=== PATIENT | male | born 1955 | race Caucasian/White ===

== ENCOUNTER → 2018-01-29 | Outpatient (CLI) | payer BC ==
--- NOTE | 2018-01-29 09:44 | XR ---
EXAMINATION TYPE: XR KUB DATE OF EXAM: 01/29/2018 COMPARISON: NONE HISTORY: Pain TECHNIQUE: One view abdominal series FINDINGS: Arthropathy noted. Paraspinal ossification or calcification on the left stable. Surgical clips in the upper abdomen noted. There are nonspecific calcifications in the pelvis. Penile prostheses incidentally noted. Arthropathy of the hips noted. Ostomy site seen within the right lower quadrant. IMPRESSION: 1. Calcifications in the pelvis are nonspecific with no prior exams available to compare. No suspicio us calcifications overlying the renal outlines.
== END | disposition home or self-care (01) ==
LOC: RADXRMAIN 09:21
PROVIDERS: ATTEND Urology
DX: N20.1 Calculus of ureter (principal)
CPT/HCPCS: 74018

== ENCOUNTER → 2018-02-09 | Outpatient (CLI) | payer BC ==
--- NOTE | 2018-02-10 09:14 | CT ---
EXAMINATION TYPE: CT abdomen pelvis wo con DATE OF EXAM: 02/09/2018 HISTORY: Left ureteral stone. Abnormal x-ray. CT DLP: 1087 mGycm. Automated Exposure Control for Dose Reduction was Utilized. TECHNIQUE: CT scan of the abdomen and pelvis is performed without oral or IV contrast. COMPARISON: Abdominal x-ray January 29, 2018 FINDINGS: Within the limitations of a non-contrast study, the following observations are made. LUNG BASES: Coronary artery calcification RCA and left circumflex present, noted marker for coronary artery disease. LIVER/GB: No significant abnormality is appreciated. PANCREAS: No significant abnormality is seen. SPLEEN: No significant abnormality is seen. ADRENALS: There is 1.6 x 1.5 cm low dense left adrenal mass, Hounsfield units average 0. There is low dense 2.0 x 1.8 cm right adrenal mass, Hounsfield units average 3. 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 KIDNEYS: No left-sided renal calculus or hydronephrosis. There is moderate to severe right-sided hydr onephrosis without prominent hydroureter, there is fairly rapid transition proximal ureter level, no obstructing calculus is seen. Uroepithelial tumor needs to BE excluded. BOWEL: There are diverticula along the mesenteric portion of the second and third portion of duodenum seen best coronal image 49. There is right lower quadrant ileostomy. Surgical changes from total col ectomy are present. Left-sided surgical clips are seen. There is partially rim calcified intraluminal mass in bladder measuring 5.0 x 3.9 cm transversely axi al image 125 along left aspect of bladder wall confirmed coronal image 61. Neoplasm is suspected. The re is focal mild anterior bladder wall thickening up to 6 mm. Anterior to this there is a penile pump prosthesis reservoir. Some lobulation to the bladder is present. There is second suspicious asymmetr ic superior right bladder wall mass measuring 1.7 cm axial image 110. GENITAL ORGANS: Prostate is poorly visualized. There is suspected TURP type defect. LYMPH NODES: No greater than 1cm abdominal or pelvic lymph nodes are appreciated. There are prominent but subcentimeter lymph nodes throughout the mesentery, there are areas of irregular nodularity and slight mesenteric thickening seen best on coronal images. OSSEOUS STRUCTURES: Moderate joint space loss and acetabular geode formation is present in both hips. There is moderate to severe joint space loss with spurring and vacuum disc phenomenon lumbosacral ju nction. There is moderate multilevel spurring in the thoracolumbar spine. Prominent left lateral spur ring L3 level is likely accounting for x-ray abnormality. OTHER: No significant additional abnormality is seen. IMPRESSION: No renal or ureter stones is seen bilaterally. There are however two suspicious bladder m asses worrisome for neoplasm and moderate to severe right-sided hydronephrosis without hydroureter, t hird proximal ureter uroepithelial tumor needs to be strongly considered. Direct visualization is war ranted. Mild mesenteric studding could reflect early metastatic spread. Other etiologies not excluded . A Yellow level critical message alert has been initiated for Noel Fox MD via the [facility] Critical Results System on 02/10/2018 9:11 AM. This message alert has been sent to Jeanna Esqueda via the preferences provided by the clinician for the receipt of Radiology Critical Findings. Josefa Ikanos ID [id number].
== END | disposition home or self-care (01) ==
LOC: RADCTMAIN 18:29
PROVIDERS: ATTEND Urology
DX: N13.30 Unspecified hydronephrosis (principal)
CPT/HCPCS: 74176

== ENCOUNTER 2021-11-06 06:22 | Day surgery (SDC) | payer MEDICARE ==
[2021-11-02 11:06] VITALS: BMI 32.1
[~2021-11-06 06:22] MED LIST: DEXAMETHASONE SOD PHOSPHATE 4 MG/ML 1 ML VIAL IV ONE; LACTATED RINGERS 1,000 ML IV SCH; ONDANSETRON 4 MG/2 ML VIAL IVP ONE; Pre Op ABX Message 1 EACH MISC MISCELLANE ONE
[2021-11-06 06:59] VITALS: TEMP 97
[2021-11-06] MEDS ORDERED: HYDROmorphone 0.5 MG/0.5 ML SYRINGE IVP PRN (07:00)
[2021-11-06 07:13] LABS: Glucose,Whole Blood 118 mg/dL (75-99)
[2021-11-06] MEDS ORDERED: LIDOCAINE 1% (10MG/ML) FOR IV START INTRADERMA ONE (07:14)
[2021-11-06] MEDS ORDERED: MIDAZOLAM 2 MG/2 ML VIAL ONE (07:19)
[2021-11-06] MEDS ORDERED: .fentaNYL (PF) 50 MCG/ML 2 ML AMP ONE (07:19)
[2021-11-06] MEDS ORDERED: KETAMINE 10 MG/ML 20 ML VIAL ONE (07:19)
[2021-11-06] MEDS ORDERED: PROPOFOL 10 MG/ML 20 ML VIAL IV ONE (07:19)
[2021-11-06 07:32] LABS: Potassium 3.9 mmol/L (3.5-5.1)
--- NOTE | 2021-11-06 07:32 | P.GSHP ---
History of Present Illness H&P Date: 11/06/21 Chief Complaint: Diabetic ulcer right foot The patient has had an ulcer on the plantar aspect of his right foot for over a month. There is no pain involved. He is a diabetic. It is under fair control. Past Medical History Past Medical History: Diabetes Mellitus, Hyperlipidemia, Hypertension, Prostate Disorder Additional Past Medical History / Comment(s): COLOSTOMY. rt foot wound History of Any Multi-Drug Resistant Organisms: None Reported Past Surgical History: Appendectomy, Bowel Resection Past Anesthesia/Blood Transfusion Reactions: No Reported Reaction Smoking Status: Former smoker - Past Family History Brother(s) Family Medical History: Cancer Additional Family Medical History / Comment(s): prostate cancer Mother Family Medical History: Diabetes Mellitus Medications and Allergies Home Medications Medication Instructions Recorded Confirmed Type Atorvastatin [Lipitor] 10 mg PO DAILY 11/06/15 11/06/21 History HYDROcodone/APAP 5-325MG [[place] 5] 1 tab PO HS PRN 11/06/15 11/06/21 History Losartan/Hydrochlorothiazide 1 tab PO DAILY 11/06/15 11/06/21 History [Hyzaar 100-25 Tablet] amLODIPine [Norvasc] 10 mg PO DAILY 11/06/15 11/06/21 History cloNIDine [Clonidine] 0.3 mg TRANSDERM WEEKLY 11/06/15 11/06/21 History metFORMIN HCL [Glucophage] 500 mg PO BID 11/06/15 11/06/21 History ALPRAZolam [Xanax] 0.25 mg PO HS 11/02/21 11/06/21 History Levothyroxine Sodium [Synthroid] 25 mcg PO DAILY 11/06/21 11/06/21 History Allergies Allergy/AdvReac Type Severity Reaction Status Date / Time No Known Allergies Allergy Verified 11/06/21 07:00 Surgical - Exam Osteopathic Statement: *. No significant issues noted on an osteopathic structural exam other than those noted in the History and Physical/Consult. Vital Signs Temp Pulse Resp BP Pulse Ox 97 F L 65 16 130/69 97 11/06/21 06:55 11/06/21 06:55 11/06/21 06:55 11/06/21 06:55 11/06/21 06:55 - General well developed, well nourished, no distress There is an ulcer on the plantar right foot over the distal head of the fifth metatarsal. The distal head of the fifth metatarsal is involved with loss of bone structure. Results - Labs Abnormal Lab Results - Last 24 Hours (Table) 11/06/21 Range/Units 07:07 POC Glucose (mg/dL) 118 H (75-99) mg/dL Assessment and Plan (1) Diabetic ulcer of right foot associated with diabetes mellitus due to underlying condition, with necrosis of bone Current Visit: Yes Status: Acute Code(s): E08.621 - DIABETES MELLITUS DUE TO UNDERLYING CONDITION W FOOT ULCER; L97.514 - NON-PRS CHRONIC ULCER OTH PRT RIGHT FOOT W NECROSIS OF BONE SNOMED Code(s): 882782099 Plan: I discussed options for therapy with the patient in detail. We will debridement the ulcer and any bony involvement. Following the procedure will be packed and a wound VAC will be placed tomorrow in wound care. The patient verbalizes an understanding of our plan and his agreement with it.
--- NOTE | 2021-11-06 07:59 | P.OP ---
Date of Procedure: 11/06/21 Preoperative Diagnosis: Diabetic infection right foot Postoperative Diagnosis: Same Procedure(s) Performed: Debridement right foot including tended and soft tissues Anesthesia: MAC Surgeon: Wes Magana Estimated Blood Loss (ml): 30 Pathology: other (Soft tissue culture) Condition: stable Disposition: PACU Indications for Procedure: The patient has a severe diabetic ulcer plantar right foot over the fifth metatarsal and on the plantar aspect of the right great toe Operative Findings: On debridement there appeared to be periosteum over the distal fifth MP joint. There was, however, a lot of scar tissue and callus around the area. The great toe only involved the soft tissues and only the fatty layer was exposed. The initial measurements on the great toe was 0.3 cm x 0.3 cm and 0.2 cm in depth. Final measurements were 1.1 x 1.1 cm and 0.3 cm in depth. The lateral aspect of the foot was initially about 0.8 x 0.8 cm and 0.7 cm in depth. Final measurements 1.3 x 1.4 cm and 0.9 cm in depth. With debridement we removed dermis, epidermis and subcutaneous tissue on the great toe. On the lateral foot we removed dermis, epidermis, subcutaneous tissue, and fascia. Description of Procedure: With the patient spine position, under benefit of IV sedation, we prepped and draped in standard fashion. We used a scalpel to scrape and excise the nonviable tissue and callus on the plantar great toe as described. We used a scalpel and forceps to excise callus and callused soft tissue and removed epidermis, dermis, soft tissue, and fascia down to the surface of the bone, which appeared to be covered with periosteum. Hemostasis was accomplished with direct pressure. Absorptive silver dressing was applied with gauze Kerlix and Matt wrap. The patient tolerated the procedure well and was taken to recovery area in stable condition.
[2021-11-06 08:54] VITALS: BP 115/72; PULSE 44; RESP 18
== END 2021-11-06 08:45 | disposition home or self-care (01) ==
LOC: OR 06:22
PROVIDERS: ATTEND Thoracic Surgery (Cardiothoracic Vascular Surgery)
DX: E11.621 Type 2 diabetes mellitus with foot ulcer (principal); L97.519 Non-pressure chronic ulcer of other part of right foot with unspecified severity; E78.5 Hyperlipidemia, unspecified; I10 Essential (primary) hypertension; Z93.3 Colostomy status; Z90.49 Acquired absence of other specified parts of digestive tract; Z87.891 Personal history of nicotine dependence; Z80.42 Family history of malignant neoplasm of prostate; Z83.3 Family history of diabetes mellitus; Z79.84 Long term (current) use of oral hypoglycemic drugs; Z79.890 Hormone replacement therapy; Z79.899 Other long term (current) drug therapy
CPT/HCPCS: 80051; 87070; 87205; 87075; 11042; J2250; J2405; J3010; J2704; 87077; 87186

== ENCOUNTER → 2021-11-13 | Outpatient (CLI) | payer MEDICARE ==
--- NOTE | 2021-11-14 10:14 | P.ARTDOP ---
Arterial Doppler LOWER EXTREMITY ARTERIAL DOPPLER: DATE OF SERVICE: 11/13/2021 Reason for study: Diabetes with ulcer right forefoot. Doppler waveforms: Multiphasic bilaterally throughout with good toe waveforms. Pulse volume recording: []. Pressure gradients: Minimal at toe level. Ankle-brachial indices: Greater than 1 bilaterally. Toe brachial indices: 0.55 on the right, 0.63 on the left Impression: Normal study. Slight decrease in TBI probably related to vasospastic phenomenon..
== END | disposition home or self-care (01) ==
LOC: RADUSWWP 08:50
PROVIDERS: ATTEND Thoracic Surgery (Cardiothoracic Vascular Surgery)
DX: E11.621 Type 2 diabetes mellitus with foot ulcer (principal); L97.514 Non-pressure chronic ulcer of other part of right foot with necrosis of bone
CPT/HCPCS: 93922

== ENCOUNTER 2023-08-11 15:36 | Emergency (ER) | payer MEDICARE, BC, OTHER ==
[2023-08-11 16:23] VITALS: TEMP 98
[2023-08-11] MEDS ORDERED: KETOROLAC 15 MG/ML 1 ML VIAL IM STA (17:30)
[2023-08-11 18:08] LABS: Appearance,Urine Clear (Clear); Bacteria,Urine Occasional /hpf; Basophils # (A) 0.1 k/uL (0-0.2); Basophils % (A) 0 %; Bilirubin,Urine Negative (Negative); Blood,Urine Negative (Negative); Color,Urine Yellow; Eosinophils # (A) 0.3 k/uL (0-0.7); Eosinophils % (A) 2 %; Glucose,Urine (UA) Negative (Negative); HCT 45.1 % (39.0-53.0); HGB 15.4 gm/dL (13.0-17.5); Hyaline Casts,Urine 1 /lpf (0-2); Ketones,Urine Negative (Negative); Leukocyte Esterase,Urine Moderate (Negative); Lymphocytes # (A) 2.7 k/uL (1.0-4.8); Lymphocytes % (A) 20 %; MCH 32.5 pg (25.0-35.0); MCHC 34.2 g/dL (31.0-37.0); MCV 94.9 fL (80.0-100.0); Mean Platelet Volume 8.8; Monocytes % (A) 7 %; Neutrophils # (A) 9.5 k/uL (1.3-7.7); Neutrophils % (A) 69 %; Nitrite,Urine Negative (Negative); PH, Urine 6.5 (5.0-8.0); Platelet Count 230 k/uL (150-450); Protein,Urine 1+ (Negative); RBC 4.75 m/uL (4.30-5.90); RBC,Urine 1 /hpf (0-5); RDW 12.2 % (11.5-15.5); Specific Gravity,Urine 1.018 (1.001-1.035); Urobilinogen,Urine <2.0 mg/dL (<2.0); WBC 13.7 k/uL (3.8-10.6); WBC,Urine 68 /hpf (0-5)
--- NOTE | 2023-08-11 18:11 | XR ---
EXAMINATION TYPE: XR ankle complete RT DATE OF EXAM: 08/11/2023 5:56 PM CLINICAL INDICATION:Male, 68 years old with history of s/p tractor falling on; [facility] COMPARISON: None TECHNIQUE: The right ankle is imaged in frontal, lateral and oblique projections. FINDINGS: There is no evidence of acute osseous pathology. The joint spaces are well-preserved without evidenc e of subluxation or dislocation. Kager's fat pad is intact. Soft tissues are within normal limits. No radiopaque foreign bodies are identified. Calcaneal plantar spurring and Achilles enthesophyte forma tion. IMPRESSION: 1. No evidence of acute fracture.
--- NOTE | 2023-08-11 18:12 | XR ---
EXAMINATION TYPE: XR tibia fibula RT DATE OF EXAM: 08/11/2023 5:56 PM CLINICAL INDICATION:Male, 68 years old with history of s/p tractor falling on; [facility] COMPARISON: None TECHNIQUE: XR tibia fibula RT; tibia/fibula was examined in AP and lateral projections. FINDINGS: No evidence of any acute osseous pathology, joint dislocation, or soft tissue swelling is n oted. Leg laceration not well appreciated on radiograph. IMPRESSION: No evidence of acute fracture.
[2023-08-11 18:17] LABS: ALT 43 U/L (4-49); AST 46 U/L (17-59); African American GFR (CKD) 85 (>60 ml/min/1.73 sqM); Albumin 4.7 g/dL (3.5-5.0); Alkaline Phosphatase 73 U/L (38-126); Anion Gap 9 mmol/L; Blood Urea Nitrogen 23 mg/dL (9-20); Calcium 10.2 mg/dL (8.4-10.2); Carbon Dioxide 32 mmol/L (22-30); Chloride 97 mmol/L (98-107); Creatine Kinase 214 U/L (55-170); Glucose 134 mg/dL (74-99); Non-African American GFR(CKD) 74 (>60 ml/min/1.73 sqM); Potassium 4.6 mmol/L (3.5-5.1); Sodium 138 mmol/L (137-145); Total Bilirubin 0.6 mg/dL (0.2-1.3); Total Protein 8.1 g/dL (6.3-8.2)
[2023-08-11] MEDS ORDERED: LIDOCAINE 1% INJ 10MG/ML (20 ML MDV) SQ ONE (18:18)
[2023-08-11] MEDS ORDERED: MORPHINE SULFATE 4 MG/ML SYRINGE IM STA (18:29)
[2023-08-11] MEDS ORDERED: SODIUM CHLORIDE 0.9% 1,000 ML IV STA (19:15)
--- NOTE | 2023-08-11 19:27 | ED ---
General Adult HPI - General Chief complaint: Wound/Laceration Stated complaint: right leg laceration Time Seen by Provider: 08/11/23 16:48 Source: patient Mode of arrival: ambulatory Limitations: no limitations - History of Present Illness Initial comments: 68-year-old male presenting to the ED with a chief complaint of injury to right lower leg. Patient states he was riding a tractor clearing [place]. Patient states the tractor wheel got stuck in a ground hog hole. States that him and a coworker were pulling it out however states upon pulling it out of the tractor fell and landed on his right lower leg. During this time, states that it pinned his right leg down into the water for approximately 10 minutes. Was able to eventually get help and pull the tractor off of him. Now notes pain to his right lower extremity with a wound overlying site of pain. Patient has been able to ambulate since. No other injuries at this time. Denies chest pain or shortness of breath. - Related Data Home Medications Medication Instructions Recorded Confirmed Atorvastatin [Lipitor] 10 mg PO DAILY 11/06/15 11/06/21 HYDROcodone/APAP 5-325MG [[place] 5] 1 tab PO HS PRN 11/06/15 11/06/21 Losartan/Hydrochlorothiazide 1 tab PO DAILY 11/06/15 11/06/21 [Hyzaar 100-25 Tablet] amLODIPine [Norvasc] 10 mg PO DAILY 11/06/15 11/06/21 cloNIDine [Clonidine] 0.3 mg TRANSDERM WEEKLY 11/06/15 11/06/21 metFORMIN HCL [Glucophage] 500 mg PO BID 11/06/15 11/06/21 ALPRAZolam [Xanax] 0.25 mg PO HS 11/02/21 11/06/21 Levothyroxine Sodium [Synthroid] 25 mcg PO DAILY 11/06/21 11/06/21 Previous Rx's Medication Instructions Recorded Cephalexin [Keflex] 500 mg PO Q6HR 5 Days #20 cap 08/11/23 metroNIDAZOLE 500 mg PO QID 5 Days #20 tablet 08/11/23 Allergies Allergy/AdvReac Type Severity Reaction Status Date / Time No Known Allergies Allergy Verified 11/06/21 07:00 Review of Systems ROS Statement: Those systems with pertinent positive or pertinent negative responses have been documented in the HPI. ROS Other: All systems not noted in ROS Statement are negative. Past Medical History Past Medical History: Diabetes Mellitus, Hyperlipidemia, Hypertension, Prostate Disorder Additional Past Medical History / Comment(s): COLOSTOMY. rt foot wound History of Any Multi-Drug Resistant Organisms: None Reported Past Surgical History: Appendectomy, Bowel Resection Past Anesthesia/Blood Transfusion Reactions: No Reported Reaction Past Psychological History: Anxiety Smoking Status: Former smoker - Past Family History Brother(s) Family Medical History: Cancer Additional Family Medical History / Comment(s): prostate cancer Mother Family Medical History: Diabetes Mellitus General Exam Limitations: no limitations General appearance: alert, in no apparent distress Head exam: Present: atraumatic Eye exam: Present: normal appearance ENT exam: Present: mucous membranes moist Neck exam: Present: normal inspection Respiratory exam: Present: normal lung sounds bilaterally Cardiovascular Exam: Present: regular rate, normal rhythm GI/Abdominal exam: Present: soft Extremities exam: Present: full ROM (Able to actively plantar and dorsiflex/passive plantar and dorsiflexion without significant pain.), other (- Sensation equal and symmetric in bilateral lower extremities. Approximately 4 cm laceration on the anterior aspect of right lower leg without any foreign objects visualized. No overlying skin changes. No significant warmth. No pain out of proportion to light touch. ) Neurological exam: Present: alert, oriented X3 Skin exam: Present: warm, dry Course Vital Signs 08/11/23 16:15 Temperature 98 F Pulse Rate 68 Respiratory 16 Rate Blood Pressure 141/84 O2 Sat by Pulse 99 Oximetry Procedures - Laceration Laceration #1 Indication: laceration Site: lower extremity Size (cm): 4 Description: linear Depth: simple, single layer Anesthetic Used: lidocaine 1% Anesthesia Technique: local infiltration Amount (mls): 4 Size of Sutures: 4-0 Number of Sutures: 5 Technique: simple, interrupted Patient Tolerated Procedure: well, no complications Medical Decision Making - Medical Decision Making Was pt. sent in by a medical professional or institution (JAVIER Ni, HAND BINDERY ASSEMBLY WORKER, urgent care, hospital, or jail...) When possible be specific @ -No Did you speak to anyone other than the patient for history (EMS, parent, family, police, friend...)? What history was obtained from this source @ -No Did you review nursing and triage notes (agree or disagree)? Why? @ -I reviewed and agree with nursing and triage notes Were old charts reviewed (outside hosp., previous admission, EMS record, old EKG, old radiological studies, urgent care reports/EKG's, jail records)? Report findings @ -No old charts were reviewed Differential Diagnosis (chest pain, altered mental status, abdominal pain women, abdominal pain men, vaginal bleeding, weakness, fever, dyspnea, syncope, headache, dizziness, GI bleed, back pain, seizure, CVA, palpatations, mental health, musculoskeletal)? @ -Differential Musculoskeletal Muscular strain, contusion, ligament sprain, fracture, arthritis, septic a rthritis, bursitis, cellulitis, muscle spasm, nerve compression, DVT, arterial occlusion, herpes zoster, electrolyte abnormality, tumor.... This is not meant to be in all inclusive list EKG interpreted by me (3pts min.). @ -None X-rays interpreted by me (1pt min.). @ -X-ray interpreted by me of the right tib-fib/right ankle showed no acute process. CT interpreted by me (1pt min.). @ -None done U/S interpreted by me (1pt. min.). @ -None done What testing was considered but not performed or refused? (CT, X-rays, U/S, labs)? Why? @ -None What meds were considered but not given or refused? Why? @ -None Did you discuss the management of the patient with other professionals (professionals i.e. , PA, HAND BINDERY ASSEMBLY WORKER, lab, RT, psych nurse, director social, assurance sourcing manager, teacher, sanitation officer, insurance case manager)? Give summary @ -No Was smoking cessation discussed for >3mins.? @ -No Was critical care preformed (if so, how long)? @ -No Were there social determinants of health that impacted care today? How? (Homelessness, low income, unemployed, alcoholism, drug addiction, transportation, low edu. Level, literacy, decrease access to med. care, skilled nursing, rehab)? @ -No Was there de-escalation of care discussed even if they declined (Discuss DNR or withdrawal of care, Hospice)? DNR status @ -No What co-morbidities impacted this encounter? (DM, HTN, Smoking, COPD, CAD, Cancer, CVA, ARF, Chemo, Hep., AIDS, mental health diagnosis, sleep apnea, morbid obesity)? @ -None Was patient admitted / discharged? Hospital course, mention meds given and route, prescriptions, significant lab abnormalities, going to OR and other pertinent info. @ -Discharge 68-year-old male presenting to the ED s/p crush injury to RLE. Laboratory s tudies did demonstrate a lactic acid elevated at 2.3, CK elevated at 214. Otherwise unremarkable studies. Imaging studies showed no acute findings. At this time, no evidence of compartment syndrome or rhabdomyolysis. Patient had laceration repaired. For further details please see procedure note. Bacitracin applied. Patient provided IV fluids here in the ED. Provided empiric antibiotic treatment due to wound being submersed in water. Advised close follow-up with PCP/orthopedics. At this time, vital signs stable afebrile. Discharged home in stable condition. Discussed return precautions with patient and family who verbalizes agreement. Undiagnosed new problem with uncertain prognosis? @ -No Drug Therapy requiring intensive monitoring for toxicity (Heparin, Nitro, Insulin, Cardizem)? @ -No Were any procedures done? @ -Yes Diagnosis/symptom? @ -s/p RLE crush injury, laceration to RLE Acute, or Chronic, or Acute on Chronic? @ -Acute Uncomplicated (without systemic symptoms) or Complicated (systemic symptoms)? @ -Uncomplicated Side effects of treatment? @ -No Exacerbation, Progression, or Severe Exacerbation? @ -No Poses a threat to life or bodily function? How? (Chest pain, [place], [place], pneumonia, PE, COPD, DKA, ARF, appy, cholecystitis, CVA, Diverticulitis, Homicidal, Suicidal, threat to staff... and all critical care pts) @ -No - Lab Data Result diagrams: 08/11/23 17:48 08/11/23 17:48 Lab Results 08/11/23 08/11/23 08/11/23 Range/Units 17:48 17:48 17:48 WBC 13.7 H (3.8-10.6) k/uL RBC 4.75 (4.30-5.90) m/uL Hgb 15.4 (13.0-17.5) gm/dL Hct 45.1 (39.0-53.0) % MCV 94.9 (80.0-100.0) fL MCH 32.5 (25.0-35.0) pg MCHC 34.2 (31.0-37.0) g/dL RDW 12.2 (11.5-15.5) % Plt Count 230 (150-450) k/uL MPV 8.8 Neutrophils % 69 % Lymphocytes % 20 % Monocytes % 7 % Eosinophils % 2 % Basophils % 0 % Neutrophils # 9.5 H (1.3-7.7) k/uL Lymphocytes # 2.7 (1.0-4.8) k/uL Monocytes # 1.0 (0-1.0) k/uL Eosinophils # 0.3 (0-0.7) k/uL Basophils # 0.1 (0-0.2) k/uL Sodium 138 (137-145) mmol/L Potassium 4.6 (3.5-5.1) mmol/L Chloride 97 L (98-107) mmol/L Carbon Dioxide 32 H (22-30) mmol/L Anion Gap 9 mmol/L BUN 23 H (9-20) mg/dL Creatinine 1.03 (0.66-1.25) mg/dL Est GFR (CKD-EPI)AfAm 85 (>60 ml/min/1.73 sqM) Est GFR (CKD-EPI)NonAf 74 (>60 ml/min/1.73 sqM) Glucose 134 H (74-99) mg/dL Plasma Lactic Acid Mahesh (0.7-2.0) mmol/L Calcium 10.2 (8.4-10.2) mg/dL Total Bilirubin 0.6 (0.2-1.3) mg/dL AST 46 (17-59) U/L ALT 43 (4-49) U/L Alkaline Phosphatase 73 (38-126) U/L Creatine Kinase 214 H (55-170) U/L Total Protein 8.1 (6.3-8.2) g/dL Albumin 4.7 (3.5-5.0) g/dL Urine Color Yellow Urine Appearance Clear (Clear) Urine pH 6.5 (5.0-8.0) Ur Specific [place] 1.018 (1.001-1.035) Urine Protein 1+ H (Negative) Urine Glucose (UA) Negative (Negative) Urine Ketones Negative (Negative) Urine Blood Negative (Negative) Urine Nitrite Negative (Negative) Urine Bilirubin Negative (Negative) Urine Urobilinogen <2.0 (<2.0) mg/dL Ur Leukocyte Esterase Moderate H (Negative) Urine RBC 1 (0-5) /hpf Urine WBC 68 H (0-5) /hpf Urine Bacteria Occasional H (None) /hpf Hyaline Casts 1 (0-2) /lpf 08/11/23 Range/Units 17:48 WBC (3.8-10.6) k/uL RBC (4.30-5.90) m/uL Hgb (13.0-17.5) gm/dL Hct (39.0-53.0) % MCV (80.0-100.0) fL MCH (25.0-35.0) pg MCHC (31.0-37.0) g/dL RDW (11.5-15.5) % Plt Count (150-450) k/uL MPV Neutrophils % % Lymphocytes % % Monocytes % % Eosinophils % % Basophils % % Neutrophils # (1.3-7.7) k/uL Lymphocytes # (1.0-4.8) k/uL Monocytes # (0-1.0) k/uL Eosinophils # (0-0.7) k/uL Basophils # (0-0.2) k/uL Sodium (137-145) mmol/L Potassium (3.5-5.1) mmol/L Chloride (98-107) mmol/L Carbon Dioxide (22-30) mmol/L Anion Gap mmol/L BUN (9-20) mg/dL Creatinine (0.66-1.25) mg/dL Est GFR (CKD-EPI)AfAm (>60 ml/min/1.73 sqM) Est GFR (CKD-EPI)NonAf (>60 ml/min/1.73 sqM) Glucose (74-99) mg/dL Plasma Lactic Acid Mahesh 2.3 H* (0.7-2.0) mmol/L Calcium (8.4-10.2) mg/dL Total Bilirubin (0.2-1.3) mg/dL AST (17-59) U/L ALT (4-49) U/L Alkaline Phosphatase (38-126) U/L Creatine Kinase (55-170) U/L Total Protein (6.3-8.2) g/dL Albumin (3.5-5.0) g/dL Urine Color Urine Appearance (Clear) Urine pH (5.0-8.0) Ur Specific [place] (1.001-1.035) Urine Protein (Negative) Urine Glucose (UA) (Negative) Urine Ketones (Negative) Urine Blood (Negative) Urine Nitrite (Negative) Urine Bilirubin (Negative) Urine Urobilinogen (<2.0) mg/dL Ur Leukocyte Esterase (Negative) Urine RBC (0-5) /hpf Urine WBC (0-5) /hpf Urine Bacteria (None) /hpf Hyaline Casts (0-2) /lpf Disposition Clinical Impression: Laceration, Crush injury lower leg Disposition: HOME SELF-CARE Condition: Good Additional Instructions: Please return to the Emergency Department if symptoms worsen or any other conc erns. Please return in 10-14 days for suture removal. Please follow up with PCP/orthopedics. Prescriptions: Cephalexin [Keflex] 500 mg PO Q6HR 5 Days #20 cap metroNIDAZOLE 500 mg PO QID 5 Days #20 tablet Is patient prescribed a controlled substance at d/c from ED?: No Referrals: Noel Magaña MD [Primary Care Provider] - 1-2 days Eugenio Cadena DO [Doctor of Osteopathic Medicine] - 1-2 days Time of Disposition: 19:34
[2023-08-11] MEDS ORDERED: BACITRACIN OINT 1 EACH PACKET TOPICAL ONE (19:37)
[2023-08-11 20:56] VITALS: BP 138/74; PULSE 64; RESP 18
== END 2023-08-11 20:53 | disposition home or self-care (01) ==
LOC: EC 15:36
DX: S81.811A Laceration without foreign body, right lower leg, initial encounter (principal); E11.9 Type 2 diabetes mellitus without complications; I10 Essential (primary) hypertension; F41.9 Anxiety disorder, unspecified; E78.5 Hyperlipidemia, unspecified; Z87.891 Personal history of nicotine dependence; Z79.899 Other long term (current) drug therapy; Z79.84 Long term (current) use of oral hypoglycemic drugs; W22.8XXA Striking against or struck by other objects, initial encounter; Y93.I9 Activity, other involving external motion
CPT/HCPCS: 36415; 80053; 82550; 83605; 85025; 81001; 73590; 73610; 99283; 96360; 96372 ×2; 12002; J2270; J1885

== ENCOUNTER 2023-08-14 09:13 | Emergency (ER) | payer OTHER, MEDICARE ==
[2023-08-14] MEDS ORDERED: KETOROLAC 15 MG/ML 1 ML VIAL IVP STA (10:01)
[2023-08-14] MEDS ORDERED: SODIUM CHLORIDE 0.9% 1,000 ML IV STA (10:01)
[2023-08-14 10:45] LABS: Basophils % (A) 0 %; Eosinophils # (A) 0.2 k/uL (0-0.7); Eosinophils % (A) 2 %; HCT 44.6 % (39.0-53.0); HGB 15.2 gm/dL (13.0-17.5); Lymphocytes # (A) 2.3 k/uL (1.0-4.8); Lymphocytes % (A) 19 %; MCH 32.3 pg (25.0-35.0); MCHC 34.1 g/dL (31.0-37.0); MCV 94.9 fL (80.0-100.0); Mean Platelet Volume 8.9; Monocytes % (A) 8 %; Neutrophils # (A) 7.9 k/uL (1.3-7.7); Neutrophils % (A) 68 %; Platelet Count 215 k/uL (150-450); RDW 12.2 % (11.5-15.5); WBC 11.7 k/uL (3.8-10.6)
[2023-08-14 11:04] LABS: ALT 37 U/L (4-49); AST 38 U/L (17-59); African American GFR (CKD) >90 (>60 ml/min/1.73 sqM); Albumin 4.4 g/dL (3.5-5.0); Alkaline Phosphatase 69 U/L (38-126); Anion Gap 11 mmol/L; Blood Urea Nitrogen 17 mg/dL (9-20); Carbon Dioxide 33 mmol/L (22-30); Chloride 94 mmol/L (98-107); Glucose 111 mg/dL (74-99); Non-African American GFR(CKD) >90 (>60 ml/min/1.73 sqM); Potassium 3.9 mmol/L (3.5-5.1); Sodium 138 mmol/L (137-145); Total Bilirubin 0.6 mg/dL (0.2-1.3); Total Protein 7.7 g/dL (6.3-8.2)
[2023-08-14] MEDS ORDERED: CLINDAMYCIN 150 MG CAP PO STA (11:30)
[2023-08-14] MEDS ORDERED: CEPHALEXIN 500 MG CAP PO STA (11:34)
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
[2023-08-14 12:59] VITALS: BP 146/80; PULSE 76; RESP 20; TEMP 98.6
== END 2023-08-14 13:02 | disposition home or self-care (01) ==
LOC: EC 09:13
DX: L03.115 Cellulitis of right lower limb (principal); E11.9 Type 2 diabetes mellitus without complications; I10 Essential (primary) hypertension; E78.5 Hyperlipidemia, unspecified; F41.9 Anxiety disorder, unspecified; Z79.84 Long term (current) use of oral hypoglycemic drugs; Z79.899 Other long term (current) drug therapy; Z90.49 Acquired absence of other specified parts of digestive tract; Z87.891 Personal history of nicotine dependence
CPT/HCPCS: 36415; 80053; 83605; 85025; 87070; 87205; 99283; 96374; 96361; J1885

== ENCOUNTER 2025-05-05 10:37 | Emergency (ER) | payer MEDICARE, OTHER ==
[2025-05-05 10:46] VITALS: TEMP 97.7
[2025-05-05] MEDS: LIDOCAINE 1% INJ 10MG/ML (20 ML MDV) SQ ONE (11:35)
--- NOTE | 2025-05-05 12:06 | ED ---
Wound/Laceration HPI - General Chief Complaint: Wound/Laceration Stated Complaint: IHS-R Leg Injury Time Seen by Provider: 05/05/25 11:26 Source: patient, RN notes reviewed Mode of arrival: ambulatory Limitations: no limitations - History of Present Illness Initial Comments: This is a 69-year-old male who presents to the emergency department for a lacera tion to his right calf. 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 He denies any substantial pain associated with this. Tetanus vaccine is up-to-date. He was concerned about the depth associated with this and needing sutures. - Related Data Home Medications Medication Instructions Recorded Confirmed Atorvastatin [Lipitor] 10 mg PO DAILY 11/06/15 11/06/21 HYDROcodone/APAP 5-325MG [[place] 5] 1 tab PO HS PRN 11/06/15 11/06/21 Losartan/Hydrochlorothiazide 1 tab PO DAILY 11/06/15 11/06/21 [Hyzaar 100-25 Tablet] amLODIPine [Norvasc] 10 mg PO DAILY 11/06/15 11/06/21 cloNIDine [Clonidine] 0.3 mg TRANSDERM WEEKLY 11/06/15 11/06/21 metFORMIN HCL [Glucophage] 500 mg PO BID 11/06/15 11/06/21 ALPRAZolam [Xanax] 0.25 mg PO HS 11/02/21 11/06/21 Levothyroxine Sodium [Synthroid] 25 mcg PO DAILY 11/06/21 11/06/21 Previous Rx's Medication Instructions Recorded Cephalexin [Keflex] 500 mg PO Q6HR 5 Days #20 cap 08/11/23 metroNIDAZOLE 500 mg PO QID 5 Days #20 tablet 08/11/23 Clindamycin [Cleocin] 450 mg PO Q8H #45 capsule 08/14/23 Ibuprofen [Motrin] 800 mg PO Q6HR #30 tab 08/14/23 metroNIDAZOLE [Flagyl] 500 mg PO QID #12 tab 08/14/23 Cephalexin [Keflex] 500 mg PO Q6HR 5 Days #20 cap 05/05/25 Allergies Allergy/AdvReac Type Severity Reaction Status Date / Time No Known Allergies Allergy Verified 05/05/25 10:46 Review of Systems ROS Statement: Those systems with pertinent positive or pertinent negative responses have been documented in the HPI. ROS Other: All systems not noted in ROS Statement are negative. Past Medical History Past Medical History: Diabetes Mellitus, Hyperlipidemia, Hypertension, Prostate Disorder Additional Past Medical History / Comment(s): COLOSTOMY. rt foot wound History of Any Multi-Drug Resistant Organisms: None Reported Past Surgical History: Appendectomy, Bowel Resection Past Anesthesia/Blood Transfusion Reactions: No Reported Reaction Past Psychological History: Anxiety Smoking Status: Former smoker Past Alcohol Use History: None Reported Past Drug Use History: None Reported - Past Family History Brother(s) Family Medical History: Cancer Additional Family Medical History / Comment(s): prostate cancer Mother Family Medical History: Diabetes Mellitus General Exam Limitations: no limitations General appearance: alert, in no apparent distress Head exam: Present: atraumatic, normocephalic, normal inspection Respiratory exam: Present: normal lung sounds bilaterally. Absent: respiratory distress, wheezes, rales, rhonchi, stridor Cardiovascular Exam: Present: regular rate, normal rhythm Extremities exam: Present: other (Circular laceration to the right calf with visible subcutaneous tissue and minor active bleeding.) Neurological exam: Present: alert, oriented X3, CN II-XII intact Psychiatric exam: Present: normal affect, normal mood Course Vital Signs 05/05/25 05/05/25 10:41 12:21 Temperature 97.7 F Pulse Rate 66 69 Respiratory 18 16 Rate Blood Pressure 146/78 139/76 O2 Sat by Pulse 99 97 Oximetry Procedures - Laceration Laceration #1 Consent Obtained: verbal consent Indication: laceration Site: lower extremity Size (cm): 3 Description: linear Depth: simple, single layer Anesthetic Used: lidocaine 1% Anesthesia Technique: local infiltration Amount (mls): 4 Pre-repair: wound explored, irrigated extensively Type of Sutures: nylon Size of Sutures: 4-0 Number of Sutures: 4 Technique: simple, interrupted Medical Decision Making - Medical Decision Making This is a 69-year-old male who presents to the emergency department for lacer ation to his right leg. Was pt. sent in by a medical professional or institution? @ -No Did you speak to anyone other than the patient for history? @ -No Did you review nursing and triage notes? @ -Yes, and I agree, it is accurate with regards to the patient's symptoms. Were old charts reviewed? @ -No Differential Diagnosis? @ -Laceration, abrasion, cellulitis, burn, this is not meant to be an all- inclusive list. EKG interpreted by me (3pts min.)? @ -Not obtained X-rays interpreted by me (1pt min.)? @ -Not obtained CT interpreted by me (1pt min.)? @ -Not obtained U/S interpreted by me (1pt. min.)? @ -Not obtained What testing was considered but not performed? (CT, X-rays, U/S, labs)? Why? @ -None What meds were considered but not given? Why? @ -None Did you discuss the management of the patient with other professionals? @ -No Did you reconcile home meds? @ -No Was smoking cessation discussed for >3mins.? @ -No Was critical care preformed (if so, how long)? @ -No Were there social determinants of health that impacted care today? How? (Homelessness, low income, unemployed, alcoholism, drug addiction, transportation, low edu. Level, literacy, decrease access to med. care, residential, rehab)? @ -No Was there de-escalation of care discussed even if they declined? (Discuss DNR or withdrawal of care, Hospice)? @ -No What co-morbidities impacted this encounter? (DM, HTN, Smoking, COPD, CAD, Cancer, CVA, Hep., AIDS, mental health diagnosis, sleep apnea, morbid obesity)? @ -DM Was patient admitted / discharged? @ -Discharged. The wound on his leg was cleansed and repaired with sutures. Tetanus vaccine is already up-to-date. Patient is concerned about infection given the depth of this and his history of diabetes. Advised that infection would be unlikely, however given his concern and the possibility of a dirty tool being involved in the injury, Keflex was prescribed to be taken for the next 5 days. Advised returning in 7 to 10 days for suture removal. Patient discharged home in stable condition. Case discussed with ED attending Dr. Morrison. Return precautions reviewed in depth, the patient is instructed to return to the emergency department with any new, worsening, or concerning symptoms. Patient verbalized understanding. Undiagnosed new problem with uncertain prognosis? @ -None Drug Therapy requiring intensive monitoring for toxicity (Heparin, Nitro, Insulin, Cardizem)? @ -None Were any procedures done? @ -Laceration repair with sutures Diagnosis/symptom? @ -Laceration Acute, or Chronic, or Acute on Chronic? @ -Acute Uncomplicated (without systemic symptoms) or Complicated (systemic symptoms)? @ -Uncomplicated Side effects of treatment? @ -None Exacerbation, Progression, or Severe Exacerbation] @ -Not applicable Poses a threat to life or bodily function? @ -No Disposition Clinical Impression: Laceration Disposition: HOME SELF-CARE Instructions (If sedation given, give patient instructions): Care For Your Stitches (ED), Stitches Removal (ED) Additional Instructions: Return to the emergency department with any new, worsening, or concerning symptoms. Take the antibiotic as prescribed for 5 days. The stitches will need to be removed in 7 to 10 days. You can return here to have that done, go to urgent care, or follow-up with your primary care provider. Prescriptions: Cephalexin [Keflex] 500 mg PO Q6HR 5 Days #20 cap Is patient prescribed a controlled substance at d/c from ED?: No Referrals: Cole Magaña MD [Primary Care Provider] - 1-2 days Time of Disposition: 12:06
[2025-05-05 12:25] VITALS: BP 139/76; PULSE 69; RESP 16
== END 2025-05-05 12:31 | disposition home or self-care (01) ==
LOC: EC 10:37
DX: S81.811A Laceration without foreign body, right lower leg, initial encounter (principal); Z87.891 Personal history of nicotine dependence; W26.9XXA Contact with unspecified sharp object(s), initial encounter; Y99.0 Civilian activity done for income or pay
CPT/HCPCS: 12002; 99282; J2003